=== PATIENT | female | born 1975 | race Caucasian/White ===

== ENCOUNTER → 2016-11-26 | Outpatient (CLI) | payer BC | LOC: COL.RAD 12:00 | DX: R59.0 Localized enlarged lymph nodes (principal) ==

== ENCOUNTER → 2017-01-17 | Outpatient (CLI) | payer BC ==
[2017-01-17 16:47] LABS: BASO # 0.1 (0.0-0.2); BASO % 0.6 % (0.0-2.0); EOS # 0.6 (0.0-0.7); GRAN # 6.9 (1.4-6.5); GRAN % 65.4 % (42.2-75.2); HEMATOCRIT 42.2 % (37.0-47.0); HEMOGLOBIN 14.1 g/dl (12.5-16.0); LYMPH % 19.1 % (20.0-51.0); MEAN CELL VOLUME 86 fl (80.0-100.0); MEAN CORPUSCULAR HEMOGLOBIN 29 pg (27.0-31.0); MEAN CORPUSCULAR HGB CONC 33 g/dl (33.0-37.0); MEAN PLATELET VOLUME 10.6 fl (7.4-10.4); MONO # 0.9 (0.1-0.6); MONO % 8.6 % (1.7-9.3); PLATELET COUNT 389 K/mm3 (130-400); RED BLOOD COUNT 4.92 M/mm3 (4.10-5.30); REDCELL DISTRIBUTION WIDTH-CV 13.2 % (11.5-14.5); WHITE BLOOD COUNT 10.6 K/mm3 (4.8-10.8)
== END ==
LOC: COL.LAB 15:36
PROVIDERS: Physician Assistant
DX: R07.1 Chest pain on breathing (principal)

== ENCOUNTER → 2017-02-12 | Outpatient (CLI) | payer BC | LOC: MC.RAD 11:00 | DX: Z12.31 Encounter for screening mammogram for malignant neoplasm of breast (principal) ==

== ENCOUNTER → 2018-03-21 | Outpatient (CLI) | payer BC | LOC: COL.RAD 03-18 08:15 | DX: R22.41 Localized swelling, mass and lump, right lower limb (principal) ==

== ENCOUNTER → 2018-07-01 | Outpatient (CLI) | payer BC | LOC: MC.RAD 14:14 | DX: Z12.31 Encounter for screening mammogram for malignant neoplasm of breast (principal) ==

== ENCOUNTER 2018-12-18 00:18 | Emergency (ER) | payer BC ==
[2018-12-18 00:37] LABS: BASO # 0.1 (0.0-0.2); BASO % 0.6 % (0.0-2.0); EOS # 0.3 (0.0-0.7); GRAN % 70.4 % (42.2-75.2); HEMATOCRIT 39.8 % (37.0-47.0); HEMOGLOBIN 13.3 g/dl (12.5-16.0); LYMPH # 2.8 (1.2-3.4); LYMPH % 21.6 % (20.0-51.0); MEAN CELL VOLUME 88 fl (80.0-100.0); MEAN CORPUSCULAR HEMOGLOBIN 29 pg (27.0-31.0); MEAN CORPUSCULAR HGB CONC 33 g/dl (33.0-37.0); MEAN PLATELET VOLUME 10.7 fl (7.4-10.4); MONO # 0.6 (0.1-0.6); PLATELET COUNT 391 K/mm3 (130-400); RED BLOOD COUNT 4.55 M/mm3 (4.10-5.30); REDCELL DISTRIBUTION WIDTH-CV 13.4 % (11.5-14.5)
[2018-12-18 00:40] VITALS: TEMP 98
[2018-12-18 00:47] LABS: ALBUMIN 4.6 gm/dL (3.5-5.0); BILIRUBIN,TOTAL 0.1 mg/dL (0.0-1.0); CALCIUM 9.7 mg/dL (8.4-10.2); CREATININE, serum 0.69 (0.52-1.25); POTASSIUM 3.2 mmol/L (3.4-5.0); TOTAL PROTEIN 7.4 gm/dL (6.4-8.2)
[2018-12-18 02:36] VITALS: BP 117/78; PULSE 77
[2018-12-18] MEDS ORDERED: LEXAPRO 5MG5 MG (02:53)
[2018-12-18] MEDS ORDERED: PRINIVIL20 MG PO (02:53)
[2018-12-18] MEDS ORDERED: SYNTHROID 0.0.025 MG (02:53)
== END 2018-12-18 02:36 | disposition home or self-care (01) ==
LOC: COL.ER 00:18
PROVIDERS: Nurse Practitioner
DX: F10.129 Alcohol abuse with intoxication, unspecified (principal); I10 Essential (primary) hypertension; F41.9 Anxiety disorder, unspecified; F32.9 Major depressive disorder, single episode, unspecified; E03.9 Hypothyroidism, unspecified; Y90.6 Blood alcohol level of 120-199 mg/100 ml; Z90.89 Acquired absence of other organs
CPT/HCPCS: J2405; J7030

== ENCOUNTER → 2019-11-10 | Outpatient (CLI) | payer BC ==
[~2019-11-10] MED LIST: LEXAPRO 5MG5 MG; PRINIVIL20 MG PO; SYNTHROID 0.0.025 MG
== END ==
LOC: MC.RAD 15:41
DX: Z12.31 Encounter for screening mammogram for malignant neoplasm of breast (principal)